=== PATIENT | female | born 2000 | race African-American/Black ===

== ENCOUNTER 2021-06-26 17:48 | Emergency (ER) | payer SELFPAY ==
[2021-06-26 18:02] VITALS: BP 105/73; PULSE 114; RESP 16; TEMP 37.2; O2SAT 99
--- NOTE | 2021-06-26 18:39 | ED_ITS ---
HPI - Female Genitourinary General Chief complaint: [employer] Stated complaint: STD CHECK Source: patient and RN notes reviewed Limitations: no limitations History of Present Illness HPI Narrative: The patient, previously mostly healthy, presents for STD check. Patient states that about 3 weeks ago she had last intercourse with her partner who is now been told that he tested positive for chlamydia. She has no fever, vomiting/diarrhea, rash, dysuria/urgency; no loss of taste/smell, cough, shortness of breath, CP. She does mention some white baseline, white vaginal discharge; and she has occasional urinary frequency. Related Data Allergies Allergy/AdvReac Type Severity Reaction Status Date / Time No Known Allergies Allergy Verified 06/26/21 17:58 Review of Systems Review of Systems: General/Constitutional: No weight loss,fever Eyes: N0: Redness,discharge Ears/Nose/Throat: No: Epistaxis,ear discharge Respiratory: Denies: Hemoptysis Gastrointestinal: No Vomiting, Bleeding-rectal Skin: No Lumps, eruption Neurologic: No Focal Weakness,Sz Hematologic: Denies: Petechiae/Purpura Psychiatric: No: Suicida ideationl All Other Systems: Reviewed and Negative PMFSH Comments At time of signature, agree with nursing past medical, surgical, social and family history. There is no relevant family history pertinent to the presenting complaint Exam Narrative: General Appearance: Well appearing, No distress EYE: PERRLA, Conjunctiva clear Ears: External ear normal Nose: Normal nose Mouth/Throat: Normal appearing, Normal lips Neck: Supple Respiratory: Airway patent, No respiratory distress Cardiovascular: RRR Abdomen: Soft, Non-tender, Musculoskeletal: Full ROM Skin: Warm, Dry Neurological: A&O x3, , Normal affect Course Vital Signs Vital signs: Vital Signs Temperature 98.9 F 06/26/21 18:02 Pulse Rate 114 H 06/26/21 18:02 Respiratory Rate 16 06/26/21 18:02 Blood Pressure 105/73 06/26/21 18:02 Pulse Oximetry 99 06/26/21 18:02 Temperature 98.9 F 06/26/21 18:02 Pulse Rate 114 H 06/26/21 18:02 Respiratory Rate 16 06/26/21 18:02 Blood Pressure 105/73 06/26/21 18:02 Pulse Oximetry 99 06/26/21 18:02 MDM - Female Genitourinary Lab Data Labs: Lab Results 06/26/21 06/26/21 Range/Units 18:02 18:02 C.trachomatis RNA (TMA) Pending N.gonorrhoeae RNA (TMA) Pending T. vaginalis Amp RNA Pending Discharge Plan Discharge Clinical Impression: Exposure to chlamydia, Hx of urinary frequency Patient Disposition: Home, Self-Care Condition: Stable Instructions: Chlamydia (ED) Prescriptions: New doxycycline hyclate 100 mg tablet 100 mg PO BID Qty: 14 RF: 0 metronidazole [Flagyl] 500 mg tablet 500 mg PO Q12H Qty: 14 RF: 0 Follow-up/Referrals: UNKNOWN,DOCTOR [Primary Care Provider] -
== END 2021-06-26 18:54 | disposition home or self-care (01) ==
PROVIDERS: Emergency Provider Emergency Medicine
DX: Z20.2 Contact with and (suspected) exposure to infections with a predominantly sexual mode of transmission (principal); R35.0 Frequency of micturition
CPT/HCPCS: 87491; 87591; 87661; 99214; G0463

== ENCOUNTER 2025-08-31 12:18 | Outpatient (CLI) | payer MEDICAID, SELFPAY ==
[2025-08-31 13:15] LABS: Hematocrit 39.6 % (37.0-47.0); Hemoglobin 12.4 g/dL (12.0-15.0); Immature Granulocyte Percent A 0.3 % (0-0.5); Lymphocytes Absolute Auto 2.11 K/mm3 (0.9-3.2); Mean Corpuscular HGB Conc 31.3 g/dl (32-36); Mean Corpuscular Hemoglobin 26.0 pg (26-34); Mean Corpuscular Volume 83.0 fl (80-100); Nucleated Red Blood Cells Absolute Auto 0.000 K/mm3 (0.0-0.012); Nucleated Red Blood Cells Perc 0.0 % (0.0-0.2); Platelet Count Result 234 k/mm3 (150-375); Red Blood Count 4.77 M/mm3 (4.2-5.4); White Blood Count 7.1 K/mm3 (4.5-10.0)
[2025-08-31 14:17] LABS: HIV 1/2 Ab P24 Ag Result Negative (Negative)
[2025-08-31 17:23] LABS: Syphilis IgG/IgM Antibody Non-Reactive (Nonreactive)
[2025-08-31 17:39] LABS: Hepatitis B Surface Antigen Negative (Negative)
[2025-09-01 07:09] LABS: Cytomegalovirus (CMV) Ab, IgG >10.00 U/mL (0.00-0.59); Varicella-Zoster Ab, IgG Reactive (Non Reactive)
[2025-09-06 11:08] LABS: Parvovirus B19, IgG 0.4 index (0.0-0.8); Parvovirus B19, IgM 0.1 index (0.0-0.8)
== END 2025-08-31 12:19 | disposition home or self-care (01) ==
PROVIDERS: Visit Provider Obstetrics & Gynecology
DX: N91.2 Amenorrhea, unspecified (principal)
CPT/HCPCS: 36415; 84702; 85025; 85660; 86593; 86644; 86703; 86747; 86762; 86787; 86850; 86900; 86901; 87086; 87340; G0432

== ENCOUNTER 2025-09-04 17:24 | Outpatient (CLI) | payer MEDICAID, SELFPAY | END 2025-09-04 17:25 | disposition home or self-care (01) | LOC: ANHLAB 17:25 | PROVIDERS: Visit Provider Obstetrics & Gynecology | DX: N91.2 Amenorrhea, unspecified (principal) | CPT/HCPCS: 36415; 84702 ==